=== PATIENT | female | born 1990 | race Two or more races ===

== ENCOUNTER 2018-10-17 12:40 | Emergency (ER) | payer OTHER ==
[~2018-10-17] VITALS: Ht 149.9 cm; Wt 66.2 kg
[2018-10-17 15:25] VITALS: BP 145/87
== END 2018-10-17 16:58 | disposition home or self-care (01) ==
LOC: ER 12:40
DX: O03.9 Complete or unspecified spontaneous abortion without complication (principal); Z3A.01 Less than 8 weeks gestation of pregnancy
CPT/HCPCS: 36415; 76856; 84702

== ENCOUNTER 2021-02-19 11:10 | Emergency (ER) | payer OTHER ==
[~2021-02-19] VITALS: Ht 149.9 cm; Wt 70.3 kg
[2021-02-19 12:04] LABS: Basophils # (auto) 0 10 ^3/uL (0-0.2); Basophils % (auto) 0.5 % (0.0-2.0); Eosinophils # (auto) 0 10 ^3/uL (0-0.8); Eosinophils % (auto) 0.4 % (0.0-7.0); Hematocrit 43.8 % (36.0-46.0); Lymphocytes # (auto) 1.4 10 ^3/uL (0.4-5.4); Lymphocytes % (auto) 15.7 % (10.0-50.0); Mean Corpuscular Hemoglobin 32.9 pg (28.0-32.0); Mean Corpuscular Hgb Conc. 34.2 g/dL (32.0-36.0); Mean Corpuscular Volume 96.2 fL (80.0-100.0); Monocytes # (auto) 0.3 10 ^3/uL (0-1.3); Monocytes % (auto) 3.6 % (0.0-12.0); Neutrophils # (auto) 7.2 10 ^3/uL (1.6-8.6); Neutrophils % (auto) 79.8 % (37.0-80.0); Nucleated Red Blood Cells % 0.1 %; Red Blood Cells 4.55 10^6/uL (4.0-5.20); Red Cell Distribution Width 13.1 % (11.8-14.3); White Blood Cell 9.1 10^3/uL (4.4-10.8)
[2021-02-19 12:41] LABS: Urine Bacteria FEW /hpf (None Seen); Urine Blood Negative /uL (Negative); Urine Specific Gravity 1.005 (1.001-1.035); Urine WBC <1 /hpf (0 - 5)
[2021-02-19 13:12] LABS: Albumin 3.6 g/dL (3.4-5.0); BUN/Creatinine Ratio 16.3; Bilirubin, Total 0.2 mg/dL (0.2-1.0); Potassium 4.5 mmol/L (3.5-5.1); Total Protein 7.7 g/dL (6.4-8.2)
[2021-02-19 17:52] VITALS: BP 149/84
== END 2021-02-19 17:56 | disposition home or self-care (01) ==
LOC: ER 11:10
DX: K80.80 Other cholelithiasis without obstruction (principal); R10.30 Lower abdominal pain, unspecified
CPT/HCPCS: 36415; 74176; 80053; 81001; 83690; 84702; 85025

== ENCOUNTER 2024-03-24 15:33 | Emergency (ER) | payer BC, OTHER ==
[~2024-03-24] VITALS: Ht 154.9 cm; Wt 63.0 kg
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
[2024-03-24] MEDS ORDERED: SODIUM CHLORIDE 0.9% 500 ML IVB ONE (16:30)
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
[2024-03-24] MEDS: SODIUM CHLORIDE 0.9% 1,000 ML IV ONE (16:46)
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
[2024-03-24 17:33] LABS: Alanine Aminotransferase 35 U/L (7-40); Albumin 4.7 g/dL (3.2-4.8); Alkaline Phosphatase 91 U/L (46-116); Anion Gap 10 (5-15); Aspartate Aminotransferase 36 U/L (13-40); Bilirubin, Total 0.4 mg/dL (0.2-1.0); Blood Urea Nitrogen 13 mg/dL (9-23); Calcium 10.2 mg/dL (8.7-10.4); Carbon Dioxide 22 mmol/L (20-31); Chloride 106 mmol/L (98-107); Glucose 97 mg/dL (74-106); Potassium 3.9 mmol/L (3.5-5.1); Sodium 138 mmol/L (136-145); Total Protein 7.5 g/dL (5.7-8.2)
[2024-03-24 17:38] LABS: Basophils # (auto) 0 10 ^3/uL (0-0.2); Basophils % (auto) 0.2 % (0.0-2.0); Eosinophils # (auto) 0 10 ^3/uL (0-0.8); Eosinophils % (auto) 0.1 % (0.0-7.0); Hematocrit 45.4 % (36.0-46.0); Hemoglobin 15.1 g/dL (12.2-16.2); Lymphocytes # (auto) 1.4 10 ^3/uL (0.4-5.4); Lymphocytes % (auto) 7.3 % (10.0-50.0); Mean Corpuscular Hemoglobin 32.9 pg (28.0-32.0); Mean Corpuscular Hgb Conc. 33.3 g/dL (32.0-36.0); Mean Corpuscular Volume 98.9 fL (80.0-100.0); Monocytes % (auto) 5.4 % (0.0-12.0); Neutrophils # (auto) 16.2 10 ^3/uL (1.6-8.6); Platelet Count (auto) 354 10^3/uL (140-450); Red Blood Cells 4.59 10^6/uL (4.0-5.20); Red Cell Distribution Width 12.8 % (11.8-14.3); White Blood Cell 18.7 10^3/uL (4.4-10.8)
[2024-03-24] MEDS ORDERED: IOHEXOL 300 MG/ML 100ML BOTTLE IJ ONE (18:32)
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
[2024-03-24 19:47] VITALS: PULSE 103; RESP 16; O2SAT 99
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
[2024-03-24] MEDS ORDERED: CYCL-838 PO (23:20)
[2024-03-24] MEDS ORDERED: ACET650T12 PO (23:20)
[2024-03-24 23:26] VITALS: BP 116/75; PULSE 92; RESP 16; TEMP 99.3; O2SAT 98
[2024-03-24] MEDS: ACETAMINOPHEN 500 MG TAB or CAP PO ONE (23:33)
== END 2024-03-24 23:41 | disposition home or self-care (01) ==
LOC: EDBD 15:33 → ER 15:33
DX: S60.511A Abrasion of right hand, initial encounter (principal); M25.562 Pain in left knee; M54.2 Cervicalgia; R20.2 Paresthesia of skin; V43.52XA Car driver injured in collision with other type car in traffic accident, initial encounter; Y93.I9 Activity, other involving external motion; Y92.488 Other paved roadways as the place of occurrence of the external cause; Y99.8 Other external cause status
CPT/HCPCS: 36415; 70450; 71260; 72125; 73110; 73552; 73562; 74177; 80053; 83690; 84702; 85025; 99285; Q9967